=== PATIENT | male | born 1940 | race Caucasian/White ===

== ENCOUNTER 2018-06-19 06:47 | Day surgery (SDC) | payer MEDICARE ==
[~2018-06-19] VITALS: Ht 175.3 cm; Wt 104.8 kg
[~2018-06-19 06:47] MED LIST: ALLO100T PO; AMLO5TAB7 PO; ASPI-555 PO; FISH1CAP63 PO; LOSA100T20 PO; METO50TA18 PO; MONT10TA24 PO; MULT-1258 PO; SIMV20TA6 PO; SODIUM CHLORIDE 0.9% 1000ML 1,000 ML IV ONE; SUPER B PO; TERA5CAP4 PO
[2018-06-19 07:09] VITALS: BP 119/65
[2018-06-19] MEDS ORDERED: PROPOFOL 10 MG/ML 20ML VIAL IV ONE (08:32)
[2018-06-19] MEDS ORDERED: EPHEDRINE SULFATE 50 MG/ML AMPULE ONE (08:45)
[2018-06-19] MEDS ORDERED: SODIUM CHLORIDE 0.9% 10 ML VIAL ONE (08:55)
[2018-06-19] MEDS ORDERED: PHENYLEPHRINE HCL 10 MG/ML 1ML VIAL IV ONE (08:56)
[2018-06-19 09:02] VITALS: BP 102/52
[2018-06-19 09:07] VITALS: BP 108/52
[2018-06-19 09:12] VITALS: BP 114/56
== END 2018-06-19 09:30 | disposition home or self-care (01) ==
LOC: DAH 06:47
PROVIDERS: ATTEND Internal Medicine Gastroenterology
DX: Z12.11 Encounter for screening for malignant neoplasm of colon (principal); D12.5 Benign neoplasm of sigmoid colon; D12.8 Benign neoplasm of rectum; K64.0 First degree hemorrhoids; K57.30 Diverticulosis of large intestine without perforation or abscess without bleeding; E78.2 Mixed hyperlipidemia; I10 Essential (primary) hypertension; E78.5 Hyperlipidemia, unspecified; J45.909 Unspecified asthma, uncomplicated; Z98.890 Other specified postprocedural states; Z95.1 Presence of aortocoronary bypass graft; Z79.899 Other long term (current) drug therapy; Z79.84 Long term (current) use of oral hypoglycemic drugs
CPT/HCPCS: 45380; 45381; 45385; 88305; 93005; A4606; A4649; J2370; J2704; J3490; J7030; 45382; 45384

== ENCOUNTER → 2018-06-27 | Outpatient (CLI) | payer MEDICARE ==
[~2018-06-27] MED LIST changes: -SODIUM CHLORIDE 0.9% 1000ML 1,000 ML IV ONE
== END | disposition home or self-care (01) ==
LOC: SHCH 12:58
PROVIDERS: ATTEND Internal Medicine Cardiovascular Disease
DX: I65.23 Occlusion and stenosis of bilateral carotid arteries (principal); R09.89 Other specified symptoms and signs involving the circulatory and respiratory systems; I25.10 Atherosclerotic heart disease of native coronary artery without angina pectoris
CPT/HCPCS: 93880

== ENCOUNTER → 2018-09-12 | Outpatient (CLI) | payer MEDICARE ==
[~2018-09-12] MED LIST changes: -AMLO5TAB7 PO; +AMLO5TAB9 PO; +IOHEXOL 350 MG/ML 100ML INFUS..BTL IV ONE; -LOSA100T20 PO; +LOSA100T58 PO
== END | disposition home or self-care (01) ==
LOC: RAH 07:32
PROVIDERS: ATTEND Internal Medicine Cardiovascular Disease
DX: I65.23 Occlusion and stenosis of bilateral carotid arteries (principal); I70.0 Atherosclerosis of aorta; I77.1 Stricture of artery
CPT/HCPCS: 70498; Q9967 ×2

== ENCOUNTER → 2019-07-08 | Outpatient (CLI) | payer MEDICARE ==
[~2019-07-08] MED LIST changes: -IOHEXOL 350 MG/ML 100ML INFUS..BTL IV ONE; +SIMV-43 PO; -SIMV20TA6 PO
== END | disposition home or self-care (01) ==
LOC: SHCH 08:55
PROVIDERS: ATTEND Internal Medicine Cardiovascular Disease
DX: I51.7 Cardiomegaly (principal); R01.1 Cardiac murmur, unspecified; R06.02 Shortness of breath
CPT/HCPCS: 93306

== ENCOUNTER → 2023-09-20 | Outpatient (CLI) | payer MEDICARE, OTHER ==
[~2023-09-20] MED LIST changes: +AMLO-257 PO; -AMLO5TAB9 PO; -ASPI-555 PO; +ASPI-556 PO; -LOSA100T58 PO; +LOSA100T59 PO; +MONT-39 PO; -MONT10TA24 PO
== END | disposition home or self-care (01) ==
LOC: RAH 13:41
PROVIDERS: ATTEND Nurse Practitioner Adult Health
DX: R06.02 Shortness of breath (principal)
CPT/HCPCS: 71046

== ENCOUNTER → 2023-11-20 | Outpatient (CLI) | payer OTHER | END | disposition home or self-care (01) | LOC: SHCH 14:10 | PROVIDERS: ATTEND Internal Medicine Cardiovascular Disease | DX: I65.23 Occlusion and stenosis of bilateral carotid arteries (principal); I35.8 Other nonrheumatic aortic valve disorders; I11.9 Hypertensive heart disease without heart failure; E78.5 Hyperlipidemia, unspecified; R60.9 Edema, unspecified; Z95.1 Presence of aortocoronary bypass graft | CPT/HCPCS: 93306; 93880 ==

== ENCOUNTER → 2023-11-23 | Outpatient (CLI) | payer OTHER ==
[2023-11-23] MEDS: REGADENOSON 0.4 MG/5 ML PF SYG IVP ONE (15:07)
== END | disposition home or self-care (01) ==
LOC: SHCH 08:12
PROVIDERS: ATTEND Internal Medicine Cardiovascular Disease
DX: I25.10 Atherosclerotic heart disease of native coronary artery without angina pectoris (principal); R06.00 Dyspnea, unspecified; R05.9 Cough, unspecified
CPT/HCPCS: 78452; 96374; 93017; J2785; A9500 ×2

== ENCOUNTER → 2024-09-24 | Outpatient (CLI) | payer OTHER ==
--- NOTE | 2024-09-29 08:31 | HMCSR ---
APPROVED REPORT EXAM: Two-dimensional and M-mode echocardiogram with Doppler and color Doppler. INDICATION ICD: R06.02 Shortness of breath 2D Dimensions RVDd4.6 cmLVEF(%)30.4 (>50%)LVED Vol(simp.)128.0 mL IVSd1.2 (0.7-1.1cm)FS(%)15 %LVES Vol(simp.)85.0 mL LVDd6.5 (3.8-5.6cm)Ao Root(2D)2.8 (2.0-3.7cm)LVEF(%, simp.)34 % PWd1.3 (0.7-1.1cm)LVOT diam2.1 (1.8-2.4cm) LVDs5.6 (2.5-4.0cm)IVC diam2.0 cm Aortic Valve AoV Vmax1.7 m/Graciela Peak GR11.3 mmHgLVOT Vmax0.9 m/s AoV VTI0.3 mAo Mean GR7.9 mmHgLVOT VTI0.20 m JOSE ALFREDO (VMAX)2.1 cm2AVA (VTI) 2.1 cm2 Mitral Valve MV E Vmax56.7 cm/sDECEL Qcyk058 ms MV A Vmax90.2 cm/sP 1/2 T40 ms E/A ratio0.6MVA (PHT)5.4 cm2 MR Max PG141 mmHg TDI E/E' Htfuqm40.2E/E' [id number] Pulmonary Valve PV Vmax1.1 m/sPV VTI0.18 mPV Mean GR2 mmHg PV Peak GR4.4 mmHg Tricuspid Valve RAP (EST) 8 mmHg Left Ventricle The left ventricle is moderately dilated. There is mild concentric left ventricular hypertrophy. LVEF is 30-35%. No left ventricle thrombus noted on this study. Grade 1 diastolic dysfunction Right Ventricle The right ventricle is moderately dilated. Right ventricular systolic function is mildly reduced. Atria The left atrial size appear normal. The right atrium is moderately dilated. Aortic Valve Aortic valve is trileaflet. Aortic valve is mildly calcified. Trace aortic regurgitation. Maximum pre ssure gradient of 11.3 mmHg and mean pressure gradient of 7.9 mmHg. Mitral Valve The mitral valve is mildly thickened. Mitral annular calcification is mild. Mitral regurgitation is m ild to moderate. There is no mitral valve stenosis. Tricuspid Valve The tricuspid valve leaflets appear normal. There is trace tricuspid regurgitation. Pulmonic Valve Pulmonic valve is not well visualized. There is trace pulmonic valvular regurgitation. Great Vessels The aortic root is normal in size. IVC is dilated and collapses >50% with inspiration. Pericardium No pericardial effusion. Conclusion The left ventricle is moderately dilated. There is mild concentric left ventricular hypertrophy. LVEF is 30-35%. Grade 1 diastolic dysfunction The right ventricle is moderately dilated. Right ventricular systolic function is mildly reduced. The left atrial size appear normal. The right atrium is moderately dilated. Aortic valve is trileaflet. Aortic valve is mildly calcified. Trace aortic regurgitation. Maximum pressure gradient of 11.3 mmHg and mean pressure gradient of 7.9 mmHg. The mitral valve is mildly thickened. Mitral annular calcification is mild. Mitral regurgitation is mild to moderate. There is no mitral valve stenosis. There is trace tricuspid regurgitation. IVC is dilated and collapses >50% with inspiration. No pericardial effusion.
== END | disposition home or self-care (01) ==
LOC: SHCH 13:05
PROVIDERS: ATTEND Internal Medicine Cardiovascular Disease
DX: I08.0 Rheumatic disorders of both mitral and aortic valves (principal); I25.10 Atherosclerotic heart disease of native coronary artery without angina pectoris; I50.22 Chronic systolic (congestive) heart failure; R06.02 Shortness of breath
CPT/HCPCS: 93306

== ENCOUNTER → 2025-06-29 | Outpatient (CLI) | payer OTHER ==
[~2025-06-29] MED LIST changes: -AMLO-257 PO; +APIX5TAB PO; +EMPA10TA PO; -FISH1CAP63 PO; +FURO40TA5 PO; -LOSA100T59 PO; +LOSA50TA64 PO; +METF-444 PO; -MULT-1258 PO; +SPIR25TA6 PO; -SUPER B PO
--- NOTE | 2025-06-29 22:18 | HMCIMG ---
EXAM: CT SCAN OF THE CHEST WITHOUT CONTRAST Clinical statement: Shortness of breath and nonspecific abnormal finding on prior lung imaging. STUDY PROTOCOL: CT radiation dose protocol was performed in accordance with the principles of ALARA. A multislice CT scan of the chest was done without intravenous contrast. Sections were obtained from the thoracic inlet through the upper abdomen with multiplanar reformations. RADIATION DOSE: CTDIvol 16.20 mGy; DLP 670.00 mGy???cm. CONTRAST: No intravenous contrast administered. COMPARISON: None provided. FINDINGS: Soft tissues: No axillary or supraclavicular lymphadenopathy or chest wall mass is identified. Lungs and large airways: Subtle airspace opacity is present in the basal segment of the right lower lobe, without mckinley consolidation or cavitation. Remaining lung parenchyma is clear without suspicious pulmonary nodule or mass. Central airways are patent. Pleura: No pleural effusion or pneumothorax is seen. Mild thickening of the left major fissure is noted, which may represent fibrotic/scar-related thickening versus a minimal fissural fluid component. No significant pleural plaque or mass is identified. Heart and pericardium: Mild cardiomegaly is present. No pericardial effusion is seen. Changes of prior median sternotomy are noted. Aorta: The proximal thoracic aorta measures approximately 33 mm in diameter, within normal limits. Moderate calcified atherosclerotic change is present in the thoracic aorta. Pulmonary arteries: Main and central pulmonary arteries are normal in caliber. Evaluation for pulmonary embolism is limited on this noncontrast study, but no gross central filling defect is seen. Lymph nodes: No mediastinal or hilar lymph nodes are enlarged by size criteria. Mediastinum and emigdio: No mediastinal mass is identified. Hilar structures are unremarkable. Chest wall and lower neck: Post sternotomy changes are present without focal chest wall fluid collection or mass. Visualized lower neck structures are unremarkable. Bones/joints: Degenerative changes are present in the thoracic spine without acute fracture or destructive osseous lesion. Upper abdomen: Visualized upper abdominal organs are unremarkable on this noncontrast examination. IMPRESSION: * Subtle airspace disease in the basal segment of the right lower lobe, which may represent early or mild infectious/inflammatory change versus subsegmental atelectasis. Correlate with clinical symptoms, oxygenation status, and inflammatory markers; short-interval follow-up chest imaging may be considered if symptoms persist or worsen. 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 * Mild thickening of the left major fissure, favoring fibrotic or scar-related change; a small amount of fissural fluid is a less likely alternative and of doubtful clinical significance in the absence of other pleural abnormalities. * No large pleural effusion, pneumothorax, or additional acute intrathoracic process identified. Degenerative changes of the thoracic spine without acute osseous abnormality. /Clark
== END | disposition home or self-care (01) ==
LOC: RAH 14:06
PROVIDERS: ATTEND Nurse Practitioner Adult Health
DX: J98.4 Other disorders of lung (principal); I51.7 Cardiomegaly; I70.0 Atherosclerosis of aorta; R91.8 Other nonspecific abnormal finding of lung field; R06.02 Shortness of breath; M47.814 Spondylosis without myelopathy or radiculopathy, thoracic region; Z98.890 Other specified postprocedural states
CPT/HCPCS: 71250